=== PATIENT | male | born 1975 | race Caucasian/White ===

== ENCOUNTER 2020-11-18 21:27 | Inpatient (IN) | payer OTHER ==
[~2020-11-18 21:27] MED LIST: DIAZEPAM 5MG TAB5 MG PO; INDERAL 40MG TA40 MG PO; LIBRIUM10 MG PO; PEPCID AC20 MG PO
[2020-11-18 21:51] LABS: BASOPHIL 0.7 % (0-2); EOSINOPHIL 0 % (0-5); HCT 51.3 % (42.0-52.0); HGB 17.4 g/dl (13.2-18.0); LYMPHOCYTE 10.3 % (15-48); MCH 29.1 pg (25.0-31.0); MCHC 33.9 g/dL (32.0-36.0); MCV 85.8 fL (78.0-100.0); MONOCYTE 5.7 % (0-12); MPV 8.9 fL (6.0-9.5); NRBC 0; PLT 280 K/uL (150-400); RBC 5.98 M/uL (4.70-6.00); RDW 12.8 % (11.5-14.0); WBC 13.3 K/uL (4.0-10.5)
[2020-11-18 22:21] LABS: ALBUMIN 4.3 g/dL (3.4-5.0); BUN/CREAT RATIO (CALC) 13.4 RATIO; CREATININE 0.97 mg/dL (0.67-1.17); GLOBULIN (CALCULATION) 3.8 g/dL; POTASSIUM 4.7 mmol/L (3.5-5.1); TOTAL PROTEIN 8.1 g/dL (6.4-8.2)
[2020-11-18 22:31] LABS: LACTIC ACID 4.6 mmol/L (0.4-1.9)
[2020-11-19] MEDS ORDERED: LIBRIUM25 MG PO (01:29)
[2020-11-19] MEDS ORDERED: ONDANSETRON ODT4 MG SL (01:29)
[2020-11-19] MEDS ORDERED: PAROXETINE 10MG10 MG PO (06:38)
[2020-11-19] MEDS ORDERED: PANTOPRAZOLE SO40 MG PO (06:39)
[2020-11-19 09:06] LABS: INR 1.1 (0.9-1.2); PROTHROMBIN TIME 13.5 SECONDS (11.4-13.6); PTT 27.5 SECONDS (22.2-34.7)
[2020-11-19 11:45] LABS: BASOPHIL 0.8 % (0-2); EOSINOPHIL 1.4 % (0-5); HCT 40.7 % (42.0-52.0); HGB 13.3 g/dl (13.2-18.0); MCH 28.6 pg (25.0-31.0); MCHC 32.7 g/dL (32.0-36.0); MCV 87.5 fL (78.0-100.0); MONOCYTE 9.9 % (0-12); MPV 8.9 fL (6.0-9.5); NEUTROPHIL 72.6 % (41-80); NRBC 0; PLT 197 K/uL (150-400); RBC 4.65 M/uL (4.70-6.00); RDW 13.1 % (11.5-14.0)
[2020-11-19 12:09] LABS: ALBUMIN 3.3 g/dL (3.4-5.0); BILIRUBIN - TOTAL 1.4 mg/dL (0.2-1.0); BUN/CREAT RATIO (CALC) 12.8 RATIO; CREATININE 0.94 mg/dL (0.67-1.17); GLOBULIN (CALCULATION) 2.5 g/dL; MAGNESIUM 2.4 mg/dL (1.8-2.4); PHOSPHORUS 2.2 mg/dL (2.6-4.7); POTASSIUM 4.5 mmol/L (3.5-5.1)
[2020-11-19 12:12] LABS: TOTAL PROTEIN 5.8 g/dL (6.4-8.2)
[2020-11-20 04:29] LABS: BASOPHIL 1.1 % (0-2); EOSINOPHIL 4.7 % (0-5); HCT 36.2 % (42.0-52.0); HGB 12.1 g/dl (13.2-18.0); LYMPHOCYTE 25.7 % (15-48); MCH 29.3 pg (25.0-31.0); MCHC 33.4 g/dL (32.0-36.0); MCV 87.7 fL (78.0-100.0); MONOCYTE 5.6 % (0-12); MPV 9.3 fL (6.0-9.5); NEUTROPHIL 62.7 % (41-80); NRBC 0; PLT 163 K/uL (150-400); RBC 4.13 M/uL (4.70-6.00); RDW 12.6 % (11.5-14.0); WBC 5.6 K/uL (4.0-10.5)
[2020-11-20 05:43] LABS: ALBUMIN 2.9 g/dL (3.4-5.0); BILIRUBIN - TOTAL 1.1 mg/dL (0.2-1.0); BUN/CREAT RATIO (CALC) 10.8 RATIO; CREATININE 0.83 mg/dL (0.67-1.17); GLOBULIN (CALCULATION) 2.4 g/dL; MAGNESIUM 2.3 mg/dL (1.8-2.4); PHOSPHORUS 1.4 mg/dL (2.6-4.7); POTASSIUM 3.4 mmol/L (3.5-5.1); TOTAL PROTEIN 5.3 g/dL (6.4-8.2)
[2020-11-20 19:23] LABS: IRON % SATURATION 72.9 %SAT (20-50)
[2020-11-21 04:36] LABS: BASOPHIL 1.5 % (0-2); EOSINOPHIL 7.5 % (0-5); HCT 38.4 % (42.0-52.0); HGB 12.8 g/dl (13.2-18.0); LYMPHOCYTE 31.6 % (15-48); MCH 29.2 pg (25.0-31.0); MCHC 33.3 g/dL (32.0-36.0); MCV 87.5 fL (78.0-100.0); MONOCYTE 8.4 % (0-12); MPV 8.9 fL (6.0-9.5); NEUTROPHIL 50.6 % (41-80); NRBC 0; PLT 130 K/uL (150-400); RBC 4.39 M/uL (4.70-6.00); RDW 12.5 % (11.5-14.0); WBC 4.8 K/uL (4.0-10.5)
[2020-11-21 06:18] LABS: ALBUMIN 3.1 g/dL (3.4-5.0); BILIRUBIN - TOTAL 0.7 mg/dL (0.2-1.0); BUN/CREAT RATIO (CALC) 3.6 RATIO; CREATININE 0.83 mg/dL (0.67-1.17); GLOBULIN (CALCULATION) 2.8 g/dL; MAGNESIUM 1.8 mg/dL (1.8-2.4); PHOSPHORUS 1.8 mg/dL (2.6-4.7); POTASSIUM 3.6 mmol/L (3.5-5.1); TOTAL PROTEIN 5.9 g/dL (6.4-8.2)
[2020-11-22 05:33] LABS: ALBUMIN 3.2 g/dL (3.4-5.0); BILIRUBIN - TOTAL 0.3 mg/dL (0.2-1.0); BUN/CREAT RATIO (CALC) 3.8 RATIO; CREATININE 0.8 mg/dL (0.67-1.17); GLOBULIN (CALCULATION) 3.2 g/dL; MAGNESIUM 1.8 mg/dL (1.8-2.4); POTASSIUM 3.8 mmol/L (3.5-5.1); TOTAL PROTEIN 6.4 g/dL (6.4-8.2)
== END 2020-11-22 14:23 | disposition home or self-care (01) | DRG 897 ==
LOC: FER 21:27 → FTCU 11-19 05:08 → FICU 11-19 09:34 → FTCU 11-19 17:44
PROVIDERS: Emergency Medicine Emergency Medical Services; Nurse Practitioner; ADMIT Internal Medicine
DX: F10.231 Alcohol dependence with withdrawal delirium (principal); E87.2 Acidosis; Y90.0 Blood alcohol level of less than 20 mg/100 ml; F41.9 Anxiety disorder, unspecified; F17.200 Nicotine dependence, unspecified, uncomplicated
CPT/HCPCS: 36415; 80053; 82009; 82150; 82607; 83540; 83550; 83605; 83690; 83735; 83880; 84100; 85025; 85610; 85730; 94010; C9113; G0480; J1650; J1885; J2060; J2405; J2560; J3360; J3411; J3475; J3480; J7030; J7040; J7120; Q9967; U0002

== ENCOUNTER 2021-04-20 15:13 | Emergency (ER) | payer OTHER ==
[~2021-04-20 15:13] MED LIST changes: +LIBRIUM25 MG PO; +ONDANSETRON ODT4 MG SL; +PANTOPRAZOLE SO40 MG PO; +PAROXETINE 10MG10 MG PO
[2021-04-20 17:50] LABS: BILIRUBIN NEGATIVE (NEGATIVE); BLOOD NEGATIVE Ery/uL (NEGATIVE); CLARITY CLEAR (CLEAR); COLOR YELLOW (YELLOW); GLUCOSE (U) NORMAL (NORMAL); LEUKOCYTES NEGATIVE Leu/uL (NEGATIVE); NITRITE NEGATIVE (NEGATIVE); PROTEIN NEGATIVE (NEGATIVE); UROBILINOGEN 0.2 mg/dL (0.2-1.0)
[2021-04-20 17:59] LABS: BASOPHIL 0.9 % (0-2); EOSINOPHIL 1.6 % (0-5); HCT 47.2 % (42.0-52.0); HGB 16.4 g/dl (13.2-18.0); LYMPHOCYTE 28.3 % (15-48); MCH 29.7 pg (25.0-31.0); MCHC 34.7 g/dL (32.0-36.0); MCV 85.4 fL (78.0-100.0); MONOCYTE 7.9 % (0-12); MPV 8.4 fL (6.0-9.5); NEUTROPHIL 60.7 % (41-80); NRBC 0; PLT 239 K/uL (150-400); RBC 5.53 M/uL (4.70-6.00); RDW 13.1 % (11.5-14.0); WBC 9.6 K/uL (4.0-10.5)
[2021-04-20 18:19] LABS: ALBUMIN 4.4 g/dL (3.4-5.0); BILIRUBIN - TOTAL 0.7 mg/dL (0.2-1.0); BUN/CREAT RATIO (CALC) 7.7 RATIO; CREATININE 0.91 mg/dL (0.67-1.17); GLOBULIN (CALCULATION) 3.7 g/dL; TOTAL PROTEIN 8.1 g/dL (6.4-8.2)
[2021-04-20] MEDS ORDERED: CYCLOBENZAPRINE10 MG PO (20:31)
[2021-04-20] MEDS ORDERED: MEDROL 4MG DOSEP4 MG PO (20:31)
[2021-04-20] MEDS ORDERED: LIBRIUM25 MG PO (20:31)
[2021-04-20] MEDS ORDERED: BENTYL10 MG PO (20:32)
== END 2021-04-20 20:50 | disposition home or self-care (01) ==
LOC: FER 15:13
PROVIDERS: Nurse Practitioner Family
DX: M54.32 Sciatica, left side (principal); R10.9 Unspecified abdominal pain; I10 Essential (primary) hypertension; Z87.19 Personal history of other diseases of the digestive system
CPT/HCPCS: 36415; 80053; 81003; 85025; J2060; J2270; J7030; Q9967

== ENCOUNTER 2021-12-03 13:56 | Emergency (ER) | payer OTHER ==
[~2021-12-03 13:56] MED LIST changes: +BENTYL10 MG PO; +CYCLOBENZAPRINE10 MG PO; +MEDROL 4MG DOSEP4 MG PO
[2021-12-03 15:08] LABS: ALBUMIN 4.1 g/dL (3.4-5.0); BILIRUBIN - TOTAL 0.4 mg/dL (0.2-1.0); BUN/CREAT RATIO (CALC) 11.7 RATIO; CREATININE 0.94 mg/dL (0.67-1.17); GLOBULIN (CALCULATION) 2.9 g/dL; POTASSIUM 3.9 mmol/L (3.5-5.1)
[2021-12-03 15:14] LABS: BASOPHIL 1.3 % (0-2); EOSINOPHIL 2.5 % (0-5); HCT 46.9 % (42.0-52.0); HGB 15.5 g/dl (13.2-18.0); LYMPHOCYTE 37.2 % (15-48); MCH 29.5 pg (25.0-31.0); MCV 89.3 fL (78.0-100.0); MONOCYTE 7.5 % (0-12); MPV 9.6 fL (6.0-9.5); NEUTROPHIL 51.2 % (41-80); NRBC 0; PLT 149 K/uL (150-400); RBC 5.25 M/uL (4.70-6.00); RDW 12.5 % (11.5-14.0); WBC 6.7 K/uL (4.0-10.5)
[2021-12-03 16:48] LABS: CORONAVIRUS 2019 SARS-COV-2 NEGATIVE (NEGATIVE); INFLUENZA A NAA NEGATIVE (NEGATIVE)
[2021-12-03] MEDS ORDERED: ONDANSETRON ODT4 MG PO (17:13)
== END 2021-12-03 17:43 | disposition home or self-care (01) ==
LOC: FER 13:56
PROVIDERS: Internal Medicine
DX: R07.89 Other chest pain (principal); R10.9 Unspecified abdominal pain; F17.210 Nicotine dependence, cigarettes, uncomplicated; K21.9 Gastro-esophageal reflux disease without esophagitis; Z20.822 Contact with and (suspected) exposure to COVID-19; Z79.899 Other long term (current) drug therapy
CPT/HCPCS: 36415; 71275; 80053; 83690; 84145; 84484; 85025; 93005; J2270; J2405; Q9967; U0002